=== PATIENT | female | born 1955 | race Caucasian/White ===

== ENCOUNTER 2017-08-16 13:53 | Emergency (ER) | payer BC, OTHER | END 2017-08-16 16:30 | disposition home or self-care (01) | LOC: MADERS 13:53 | DX: E11.649 Type 2 diabetes mellitus with hypoglycemia without coma (principal); E03.9 Hypothyroidism, unspecified; F32.9 Major depressive disorder, single episode, unspecified; Z79.4 Long term (current) use of insulin; Z79.899 Other long term (current) drug therapy | CPT/HCPCS: 36416; 96374; J1610 ==